=== PATIENT | female | born 1960 | race African-American/Black ===

== ENCOUNTER 2019-04-27 13:24 | Outpatient (CLI) | payer SELFPAY ==
--- NOTE | 2019-04-27 14:58 | RAD ---
PA AND LATERAL CHEST: HISTORY: Acute bronchitis. Cough. FINDINGS: The heart size is borderline. The aorta is tortuous. The lungs are well expanded without lobar cons olidation, pneumothoraces, adore pulmonary edema, or pleural effusions. No acute osseous abnormaliti es are seen. IMPRESSION: No radiographic evidence of acute cardiopulmonary process. POS: [facility]
== END 2019-04-27 13:25 | disposition home or self-care (01) ==
LOC: BICRAD 13:24
DX: J20.9 Acute bronchitis, unspecified (principal)
CPT/HCPCS: 71046

== ENCOUNTER 2021-02-24 10:38 | Outpatient (CLI) | payer OTHER | END 2021-02-24 10:39 | disposition home or self-care (01) | LOC: BICRAD 10:38 | DX: R05 Cough (principal); I51.7 Cardiomegaly | CPT/HCPCS: 71046 ==